=== PATIENT | male | born 1985 | race Caucasian/White ===

== ENCOUNTER 2016-05-30 08:20 | Emergency (ER) | payer OTHER ==
[~2016-05-30] VITALS: Ht 170.2 cm; Wt 88.5 kg
[~2016-05-30 08:20] MED LIST: CEPH-443 PO; HYDR-3498 PO; IBUP-1542 PO
[2016-05-30 08:33] VITALS: Ht 170.2 cm; Wt 88.5 kg
[2016-05-30] MEDS ORDERED: NAPR-260 PO (09:38)
[2016-05-30] MEDS ORDERED: SODI126M NASAL (09:38)
--- NOTE | 2016-05-30 09:42 | ERD ---
ER Documentation Chief Complaint Date/Time DATE: 05/30/16 TIME: 09:39 Chief Complaint runny nose,cough,body pain,sore throat HPI 31-year-old male presented to ED complaining of body aches, sore throat, runny nose, and cough 4 days. Patient reports fever last night, with temperature 102 . He did not take any medications at home. Denies shortness of breath. Denies abdominal pain, nausea, vomiting, or diarrhea ROS All systems reviewed and are negative except as per history of present illness. Medications Home Meds Active Scripts Sodium Chloride (Saline Nasal Mist) 126 Ml Mist, 2 SPRAY NASAL Q2H Y for NASAL CONGESTION, #1 BOTTLE Prov:TRENA ANGUIANO. MAR[employer]TENSION AGENT 05/30/16 Naproxen* (Naprosyn*) 500 Mg Tablet, 500 MG PO BID Y for PAIN AND OR ELEVATED TEMP, #30 TAB Prov:TRENA ANGUIANO. MARINE EXTENSION AGENT 05/30/16 Cephalexin* (Keflex*) 500 Mg Capsule, 500 MG PO QID for 5 Days, CAP Prov:SOURAV RAMIREZ MARINE EXTENSION AGENT 12/02/15 Hydrocodone Bit-Acetaminophen* (Summit*) 5-325 Mg Tab, 1 TAB PO QHS Y for PAIN, # 7 TAB 0 Refills Prov:RENEA LE PA-C 08/20/15 Ibuprofen* (Motrin*) 600 Mg Tab, 600 MG PO Q8, #30 TAB 0 Refills Prov:RENEA LE PA-C 08/20/15 Allergies Allergies: Coded Allergies: No Known Allergy (Unverified , 08/20/15) PMhx/Soc Medical and Surgical Hx: pt denies Medical Hx History of Surgery: No Anesthesia Reaction: No Hx Neurological Disorder: No Hx Respiratory Disorders: No Hx Cardiac Disorders: No Hx Psychiatric Problems: No Hx Miscellaneous Medical Probl: No Hx Alcohol Use: Yes (OCCASIONAL) Hx Substance Use: Yes (MEDICAL THC) Hx Tobacco Use: No Smoking Status: Never smoker Physical Exam Vitals Vital Signs Date Time Temp Pulse Resp B/P Pulse Ox O2 Delivery O2 Flow Rate FiO2 05/30/16 08:33 97.6 69 18 131/75 98 Physical Exam General impression: Well-developed, well-nourished. Alert, oriented, in no acute distress Head: Normocephalic, atraumatic. Eyes: PERRL, EOM normal. Conjunctiva not injected. ENT: External canals clear. TM's pearly philip. Nasal mucosa erythematous and swollen with clear nasal discharge. Oral mucosa and oropharynx are normal. Neck: Supple, nontender. No lymphadenopathy. No nuchal rigidity. Respiration: Normal respiratory effort. Lungs clear to auscultate bilaterally. No wheezes, rales or rhonchi. Cardiovascular: Regular rate and rhythm. No murmurs or extra heart sounds. Abdomen: Abdomen normal to inspection. Nontender. No masses or organomegaly. Bowel sounds normal. Back: Normal to inspection. No midline spine tenderness. No CVA tenderness. Extremities: Extremities normal to inspection, nontender. ROM normal. Neuro: Mental status normal, speech normal. PROJECT DIRECTOR grossly intact. Skin: Normal turgor. No rash or lesions. Psych: Normal mood and affect. Procedures/MDM Patient is afebrile, in no respiratory distress. Lungs are clear to auscultate. I doubt that patient has pneumonia or bronchitis. Patient symptoms are consistent with flulike illness. Since his symptoms has been ongoing for more than 48 hours, Tamiflu is not indicated. Educated patient on comfort measures and increase fluid intake. Patient appears well, stable for discharge and outpatient management. Medical decision making shared with patient and family. Education provided to patient and family. Patient and family expressed understanding of the plan. Medications on discharge: Naproxen. Follow-up: Primary care provider in 2-3 days or return to ED if worse. Departure Diagnosis: Primary Impression: Influenza-like symptoms Condition: Good Patient Instructions: Influenza (Adult) Referrals: DOCTOR,NOT ON STAFF (PCP) [facility] YOU HAVE RECEIVED A MEDICAL SCREENING EXAM AND THE RESULTS INDICATE THAT YOU DO NOT HAVE A CONDITION THAT REQUIRES URGENT TREATMENT IN THE EMERGENCY DEPARTMENT. FURTHER EVALUATION AND TREATMENT OF YOUR CONDITION CAN WAIT UNTIL YOU ARE SEEN IN YOUR DOCTORS OFFICE WITHIN THE NEXT 1-2 DAYS. IT IS YOUR RESPONSIBILITY TO MAKE AN APPOINTMENT FOR FOL-UP CARE. IF YOU HAVE A PRIMARY DOCTOR --you should call your primary doctor and schedule an appointment IF YOU DO NOT HAVE A PRIMARY DOCTOR YOU CAN CALL OUR PHYSICIAN REFERRAL HOTLINE AT IF YOU CAN NOT AFFORD TO SEE A PHYSICIAN YOU CAN CHOSE FROM THE FOLLOWING ON LICENSE OF [facility] [address] [facility]. [facility] [address] [facility] [address] [facility] [address] [facility] [address] [facility] [facility] [address] Additional Instructions: Call your primary care doctor TOMORROW for an appointment during the next 2-3 days.See the doctor sooner or return here if your condition worsens before your appointment time. TRENA ANGUIANO. DOMENIC May 30, 2016 09:42
== END 2016-05-30 09:45 | disposition home or self-care (01) ==
LOC: FTE 08:20
DX: R05 Cough (principal); J02.9 Acute pharyngitis, unspecified; R09.89 Other specified symptoms and signs involving the circulatory and respiratory systems; R50.9 Fever, unspecified
CPT/HCPCS: 99283